=== PATIENT | male | born 1950 | race Two or more races ===

== ENCOUNTER 2017-07-02 17:05 | Inpatient (IN) | payer MEDICARE, SELFPAY ==
[~2017-07-02] VITALS: Ht 167.6 cm; Wt 54.4 kg
[~2017-07-02 17:05] MED LIST: CLAR500 PO; METR500 PO; OMEP20ER PO
[2017-07-02 21:46] LABS: BASOPHILS ABSOLUTE AUTO 0.06 K/mm3 (0.00-0.23); BASOPHILS PERCENT AUTO 0 % (0-2); EOSINOPHILS ABSOLUTE AUTO 0.01 K/mm3 (0.00-0.68); EOSINOPHILS PERCENT AUTO 0 % (0-6); Hematocrit 42.5 % (37.0-53.0); Hemoglobin 14.6 g/dL (13.5-17.5); IMMATURE GRAN PERCENT AUTO 1 % (0-1); LYMPHOCYTES ABSOLUTE AUTO 2.44 K/mm3 (0.84-5.20); LYMPHOCYTES PERCENT AUTO 11 % (21-46); MONOCYTES ABSOLUTE AUTO 1.82 K/mm3 (0.16-1.47); MONOCYTES PERCENT AUTO 8 % (4-13); Mean Corpuscular HGB Conc 34.4 g/dL (31.5-36.5); Mean Corpuscular Volume 85 fL (80-100); Mean Platelet Volume 10.5 fL (9.1-12.4); NEUTROPHILS ABSOLUTE AUTO 17.58 K/mm3 (1.96-9.15); NEUTROPHILS PERCENT AUTO 80 % (41-73); Platelet Count 330 K/mm3 (150-400); RDW Coefficient Variation 13.4 % (11.7-14.2); RDW Standard Deviation 41.5 fL (35.1-46.3); Red Blood Cell Count 5.03 M/mm3 (4.30-5.90); White Blood Cell Count 22.01 K/mm3 (4.00-11.30)
[2017-07-02 22:09] LABS: Alanine Aminotransfer (ALT/SGP 22 U/L (12-78); Albumin, Blood 3.2 g/dL (3.4-5.0); Albumin/Globulin Ratio 0.7 (0.8-1.8); Alk Phos 106 U/L (50-136); Anion Gap 9 mmol/L (6-16); Aspartate Aminotrans (AST/SGOT 14 U/L (12-37); Bilirubin, Total 0.6 mg/dL (0.1-1.0); Blood Urea Nitrogen 14 mg/dL (8-24); CO2, Blood 23 mmol/L (21-32); Calcium, Blood 8.8 mg/dL (8.5-10.1); Chloride, Blood 100 mmol/L (98-108); Creatinine, Blood 0.78 mg/dL (0.60-1.20); Globulin, Blood 4.8 g/dL (2.2-4.0); Glomerular Filtration Rate >60 (60-); Glucose, Blood 143 mg/dL (70-99); Potassium, Blood 3.9 mmol/L (3.5-5.5); Sodium, Blood 132 mmol/L (136-145)
[2017-07-03 05:01] LABS: BASOPHILS ABSOLUTE AUTO 0.04 K/mm3 (0.00-0.23); BASOPHILS PERCENT AUTO 0 % (0-2); EOSINOPHILS ABSOLUTE AUTO 0.01 K/mm3 (0.00-0.68); EOSINOPHILS PERCENT AUTO 0 % (0-6); Hematocrit 38.2 % (37.0-53.0); Hemoglobin 13.1 g/dL (13.5-17.5); IMMATURE GRAN ABSOLUTE AUTO 0.17 K/mm3 (0.00-0.10); IMMATURE GRAN PERCENT AUTO 1 % (0-1); LYMPHOCYTES ABSOLUTE AUTO 1.22 K/mm3 (0.84-5.20); LYMPHOCYTES PERCENT AUTO 6 % (21-46); MONOCYTES PERCENT AUTO 8 % (4-13); Mean Corpuscular HGB 29.2 pg (26.0-34.0); Mean Corpuscular HGB Conc 34.3 g/dL (31.5-36.5); Mean Corpuscular Volume 85 fL (80-100); Mean Platelet Volume 10.1 fL (9.1-12.4); NEUTROPHILS ABSOLUTE AUTO 16.93 K/mm3 (1.96-9.15); NEUTROPHILS PERCENT AUTO 85 % (41-73); Platelet Count 289 K/mm3 (150-400); RDW Coefficient Variation 13.6 % (11.7-14.2); RDW Standard Deviation 42.5 fL (35.1-46.3); Red Blood Cell Count 4.49 M/mm3 (4.30-5.90); White Blood Cell Count 19.87 K/mm3 (4.00-11.30)
[2017-07-03 05:41] LABS: Albumin, Blood 2.6 g/dL (3.4-5.0); Anion Gap 8 mmol/L (6-16); Blood Urea Nitrogen 12 mg/dL (8-24); Bun/Creatinine Ratio 18.1 (12.0-20.0); CO2, Blood 24 mmol/L (21-32); Chloride, Blood 103 mmol/L (98-108); Creatinine, Blood 0.66 mg/dL (0.60-1.20); Glomerular Filtration Rate >60 (60-); Glucose, Blood 214 mg/dL (70-99); Potassium, Blood 3.9 mmol/L (3.5-5.5); Sodium, Blood 135 mmol/L (136-145)
[2017-07-04 04:22] LABS: BASOPHILS ABSOLUTE AUTO 0.04 K/mm3 (0.00-0.23); BASOPHILS PERCENT AUTO 0 % (0-2); EOSINOPHILS ABSOLUTE AUTO 0.33 K/mm3 (0.00-0.68); EOSINOPHILS PERCENT AUTO 2 % (0-6); Hematocrit 36.8 % (37.0-53.0); Hemoglobin 12.4 g/dL (13.5-17.5); IMMATURE GRAN PERCENT AUTO 1 % (0-1); LYMPHOCYTES ABSOLUTE AUTO 1.52 K/mm3 (0.84-5.20); LYMPHOCYTES PERCENT AUTO 11 % (21-46); MONOCYTES ABSOLUTE AUTO 1.29 K/mm3 (0.16-1.47); MONOCYTES PERCENT AUTO 9 % (4-13); Mean Corpuscular HGB Conc 33.7 g/dL (31.5-36.5); Mean Corpuscular Volume 86 fL (80-100); NEUTROPHILS PERCENT AUTO 77 % (41-73); Platelet Count 298 K/mm3 (150-400); RDW Coefficient Variation 13.8 % (11.7-14.2); RDW Standard Deviation 43.3 fL (35.1-46.3); Red Blood Cell Count 4.28 M/mm3 (4.30-5.90); White Blood Cell Count 14.28 K/mm3 (4.00-11.30)
[2017-07-04 04:37] LABS: Anion Gap 9 mmol/L (6-16); Blood Urea Nitrogen 9 mg/dL (8-24); Bun/Creatinine Ratio 14.1 (12.0-20.0); CO2, Blood 25 mmol/L (21-32); Chloride, Blood 108 mmol/L (98-108); Creatinine, Blood 0.64 mg/dL (0.60-1.20); Glomerular Filtration Rate >60 (60-); Glucose, Blood 99 mg/dL (70-99); Potassium, Blood 3.8 mmol/L (3.5-5.5); Sodium, Blood 142 mmol/L (136-145)
[2017-07-04 14:19] LABS: Vancomycin, Trough 4.4 ug/mL (5.0-10.0)
[2017-07-05 09:15] LABS: BASOPHILS ABSOLUTE AUTO 0.05 K/mm3 (0.00-0.23); BASOPHILS PERCENT AUTO 0 % (0-2); EOSINOPHILS ABSOLUTE AUTO 0.29 K/mm3 (0.00-0.68); EOSINOPHILS PERCENT AUTO 2 % (0-6); Hematocrit 40.1 % (37.0-53.0); Hemoglobin 13.5 g/dL (13.5-17.5); IMMATURE GRAN ABSOLUTE AUTO 0.06 K/mm3 (0.00-0.10); IMMATURE GRAN PERCENT AUTO 1 % (0-1); LYMPHOCYTES ABSOLUTE AUTO 2.85 K/mm3 (0.84-5.20); LYMPHOCYTES PERCENT AUTO 22 % (21-46); MONOCYTES ABSOLUTE AUTO 1.19 K/mm3 (0.16-1.47); MONOCYTES PERCENT AUTO 9 % (4-13); Mean Corpuscular HGB Conc 33.7 g/dL (31.5-36.5); Mean Corpuscular Volume 86 fL (80-100); Mean Platelet Volume 11.1 fL (9.1-12.4); NEUTROPHILS ABSOLUTE AUTO 8.73 K/mm3 (1.96-9.15); NEUTROPHILS PERCENT AUTO 66 % (41-73); Platelet Count 342 K/mm3 (150-400); RDW Coefficient Variation 13.6 % (11.7-14.2); RDW Standard Deviation 42.8 fL (35.1-46.3); Red Blood Cell Count 4.66 M/mm3 (4.30-5.90); White Blood Cell Count 13.17 K/mm3 (4.00-11.30)
[2017-07-05 15:43] LABS: Vancomycin, Trough 16.7 ug/mL (5.0-10.0)
[2017-07-06 05:45] LABS: BASOPHILS ABSOLUTE AUTO 0.05 K/mm3 (0.00-0.23); BASOPHILS PERCENT AUTO 0 % (0-2); EOSINOPHILS ABSOLUTE AUTO 0.18 K/mm3 (0.00-0.68); EOSINOPHILS PERCENT AUTO 1 % (0-6); Hematocrit 42.3 % (37.0-53.0); Hemoglobin 14.3 g/dL (13.5-17.5); IMMATURE GRAN ABSOLUTE AUTO 0.12 K/mm3 (0.00-0.10); IMMATURE GRAN PERCENT AUTO 1 % (0-1); LYMPHOCYTES ABSOLUTE AUTO 2.62 K/mm3 (0.84-5.20); LYMPHOCYTES PERCENT AUTO 20 % (21-46); MONOCYTES ABSOLUTE AUTO 0.98 K/mm3 (0.16-1.47); MONOCYTES PERCENT AUTO 7 % (4-13); Mean Corpuscular HGB 29.2 pg (26.0-34.0); Mean Corpuscular HGB Conc 33.8 g/dL (31.5-36.5); Mean Corpuscular Volume 86 fL (80-100); Mean Platelet Volume 10.1 fL (9.1-12.4); NEUTROPHILS ABSOLUTE AUTO 9.32 K/mm3 (1.96-9.15); NEUTROPHILS PERCENT AUTO 70 % (41-73); Platelet Count 397 K/mm3 (150-400); RDW Coefficient Variation 13.6 % (11.7-14.2); RDW Standard Deviation 42.4 fL (35.1-46.3); White Blood Cell Count 13.27 K/mm3 (4.00-11.30)
[2017-07-06 06:04] LABS: Anion Gap 8 mmol/L (6-16); Blood Urea Nitrogen 5 mg/dL (8-24); Bun/Creatinine Ratio 7.7 (12.0-20.0); CO2, Blood 26 mmol/L (21-32); Chloride, Blood 106 mmol/L (98-108); Creatinine, Blood 0.65 mg/dL (0.60-1.20); Glomerular Filtration Rate >60 (60-); Glucose, Blood 107 mg/dL (70-99); Potassium, Blood 4.3 mmol/L (3.5-5.5); Sodium, Blood 140 mmol/L (136-145)
[2017-07-07 17:02] LABS: Vancomycin, Trough 14.6 ug/mL (5.0-10.0)
[2017-07-08] MEDS ORDERED: Cleocin HCl300 MG PO ×2 (11:19)
[2017-07-08] MEDS ORDERED: ACET325 PO ×2 (11:19)
[2017-07-08] MEDS ORDERED: Acidophilus La1 EACH PO ×2 (11:20)
== END 2017-07-08 18:28 | disposition home or self-care (01) | DRG 872 ==
LOC: ER 17:05 → MEDS 07-03 01:05 → ENPENDDIS 07-08 11:00 → MEDS 07-08 18:28
PROVIDERS: Family Medicine; Internal Medicine; Pharmacist; Physician Assistant
PROC: 0J973ZX Drainage of Back Subcutaneous Tissue and Fascia, Percutaneous Approach, Diagnostic (ICD-10-PCS; principal; 2017-07-03)
DX: A41.02 Sepsis due to Methicillin resistant Staphylococcus aureus (principal); E87.1 Hypo-osmolality and hyponatremia; L02.212 Cutaneous abscess of back [any part, except buttock and flank]; L03.312 Cellulitis of back [any part except buttock and flank]; R05 Cough; F17.210 Nicotine dependence, cigarettes, uncomplicated; R73.9 Hyperglycemia, unspecified; Z88.0 Allergy status to penicillin
CPT/HCPCS: 10061; 36415; 80048; 80053; 80069; 80202; 82550; 82947; 83036; 83605; 85025; 87040; 87070; 87075; 87077; 87147; 87186; 87205; 93306; 96365; 99285; C1751; J0690; J0878; J3370; J7030

== ENCOUNTER 2017-07-09 09:32 | Day surgery (SDC) | payer MEDICARE, SELFPAY ==
[~2017-07-09 09:32] MED LIST changes: +ACET325 PO; +Acidophilus La1 EACH PO; +Cleocin HCl300 MG PO
== END 2017-07-09 16:27 | disposition home or self-care (01) ==
LOC: ATC 09:32
DX: A49.02 Methicillin resistant Staphylococcus aureus infection, unspecified site (principal); R78.81 Bacteremia
CPT/HCPCS: 96365; J0878

== ENCOUNTER 2017-07-10 00:15 | Day surgery (SDC) | payer MEDICARE, SELFPAY | END 2017-07-10 08:38 | disposition home or self-care (01) | LOC: ATC 00:15 | DX: A41.02 Sepsis due to Methicillin resistant Staphylococcus aureus (principal); L02.212 Cutaneous abscess of back [any part, except buttock and flank]; L03.312 Cellulitis of back [any part except buttock and flank]; Z72.0 Tobacco use | CPT/HCPCS: 96374; 99211; J0878 ==

== ENCOUNTER 2017-07-11 00:37 | Day surgery (SDC) | payer MEDICARE, SELFPAY | END 2017-07-11 09:00 | disposition home or self-care (01) | LOC: ATC 00:37 | DX: A41.02 Sepsis due to Methicillin resistant Staphylococcus aureus (principal); L03.312 Cellulitis of back [any part except buttock and flank] | CPT/HCPCS: 96374; J0878 ==

== ENCOUNTER 2017-07-12 01:12 | Day surgery (SDC) | payer MEDICARE, SELFPAY ==
[2017-07-12 08:38] LABS: BASOPHILS ABSOLUTE AUTO 0.06 K/mm3 (0.00-0.23); BASOPHILS PERCENT AUTO 1 % (0-2); EOSINOPHILS ABSOLUTE AUTO 0.23 K/mm3 (0.00-0.68); EOSINOPHILS PERCENT AUTO 2 % (0-6); Hematocrit 41.6 % (37.0-53.0); Hemoglobin 13.6 g/dL (13.5-17.5); IMMATURE GRAN ABSOLUTE AUTO 0.07 K/mm3 (0.00-0.10); IMMATURE GRAN PERCENT AUTO 1 % (0-1); LYMPHOCYTES ABSOLUTE AUTO 3.15 K/mm3 (0.84-5.20); LYMPHOCYTES PERCENT AUTO 31 % (21-46); MONOCYTES ABSOLUTE AUTO 0.73 K/mm3 (0.16-1.47); MONOCYTES PERCENT AUTO 7 % (4-13); Mean Corpuscular HGB 28.9 pg (26.0-34.0); Mean Corpuscular HGB Conc 32.7 g/dL (31.5-36.5); Mean Corpuscular Volume 88 fL (80-100); NEUTROPHILS ABSOLUTE AUTO 5.96 K/mm3 (1.96-9.15); NEUTROPHILS PERCENT AUTO 58 % (41-73); RDW Coefficient Variation 14.2 % (11.7-14.2); RDW Standard Deviation 45.5 fL (35.1-46.3); Red Blood Cell Count 4.71 M/mm3 (4.30-5.90)
[2017-07-12 08:45] LABS: Mean Platelet Volume 11.2 fL (9.1-12.4); Platelet Count 193 K/mm3 (150-400)
[2017-07-12 08:58] LABS: Alanine Aminotransfer (ALT/SGP 21 U/L (12-78); Albumin, Blood 3.3 g/dL (3.4-5.0); Albumin/Globulin Ratio 0.8 (0.8-1.8); Alk Phos 77 U/L (50-136); Anion Gap 6 mmol/L (6-16); Aspartate Aminotrans (AST/SGOT 13 U/L (12-37); Bilirubin, Total 0.2 mg/dL (0.1-1.0); Blood Urea Nitrogen 12 mg/dL (8-24); Bun/Creatinine Ratio 18.5 (12.0-20.0); CO2, Blood 25 mmol/L (21-32); CPK Creatine Kinase 64 U/L (39-308); Calcium, Blood 8.7 mg/dL (8.5-10.1); Chloride, Blood 106 mmol/L (98-108); Creatinine, Blood 0.65 mg/dL (0.60-1.20); Globulin, Blood 3.9 g/dL (2.2-4.0); Glomerular Filtration Rate >60 (60-); Glucose, Blood 127 mg/dL (70-99); Potassium, Blood 3.7 mmol/L (3.5-5.5); Sodium, Blood 137 mmol/L (136-145); Total Protein, Blood 7.2 g/dL (6.4-8.2)
== END 2017-07-12 08:26 | disposition home or self-care (01) ==
LOC: ATC 01:12
PROVIDERS: Internal Medicine Infectious Disease
DX: A41.02 Sepsis due to Methicillin resistant Staphylococcus aureus (principal); L02.413 Cutaneous abscess of right upper limb; Z72.0 Tobacco use
CPT/HCPCS: 80053; 82550; 85025; 96374; J0878

== ENCOUNTER 2017-07-13 01:10 | Day surgery (SDC) | payer MEDICARE, SELFPAY | END 2017-07-13 09:05 | disposition home or self-care (01) | LOC: ATC 01:10 | DX: A41.02 Sepsis due to Methicillin resistant Staphylococcus aureus (principal); L03.312 Cellulitis of back [any part except buttock and flank]; L02.212 Cutaneous abscess of back [any part, except buttock and flank]; Z72.0 Tobacco use | CPT/HCPCS: 96374 ==

== ENCOUNTER 2017-07-14 01:38 | Day surgery (SDC) | payer MEDICARE, SELFPAY | END 2017-07-14 08:49 | disposition home or self-care (01) | LOC: ATC 01:38 | DX: A41.02 Sepsis due to Methicillin resistant Staphylococcus aureus (principal); L02.413 Cutaneous abscess of right upper limb; L03.113 Cellulitis of right upper limb; Z72.0 Tobacco use | CPT/HCPCS: 96374; J0878 ==

== ENCOUNTER 2017-07-15 01:16 | Day surgery (SDC) | payer MEDICARE, SELFPAY ==
[2017-07-16] MEDS ORDERED: DAPTOMYCIN500 MG IV (08:24)
== END 2017-07-15 08:28 | disposition home or self-care (01) ==
LOC: ATC 01:16
DX: A41.02 Sepsis due to Methicillin resistant Staphylococcus aureus (principal); L03.113 Cellulitis of right upper limb; L02.413 Cutaneous abscess of right upper limb; Z72.0 Tobacco use
CPT/HCPCS: 96374; J0878

== ENCOUNTER 2017-07-16 00:15 | Day surgery (SDC) | payer MEDICARE, SELFPAY ==
[2017-07-16] MEDS ORDERED: DAPTOMYCIN500 MG IV (08:24)
== END 2017-07-16 08:25 | disposition home or self-care (01) ==
LOC: ATC 00:15
DX: A41.02 Sepsis due to Methicillin resistant Staphylococcus aureus (principal); L03.113 Cellulitis of right upper limb; L02.413 Cutaneous abscess of right upper limb; Z72.0 Tobacco use
CPT/HCPCS: 96374; J0878

== ENCOUNTER 2017-07-16 11:37 | Day surgery (SDC) | payer MEDICARE, SELFPAY ==
[~2017-07-16 11:37] MED LIST changes: +DAPTOMYCIN500 MG IV
== END 2017-07-16 15:52 | disposition home or self-care (01) ==
LOC: WOUND 11:37
PROC: 0HBBXZZ Excision of Right Upper Arm Skin, External Approach (ICD-10-PCS; principal; 2017-07-16)
DX: M71.012 Abscess of bursa, left shoulder (principal); L02.212 Cutaneous abscess of back [any part, except buttock and flank]; B95.62 Methicillin resistant Staphylococcus aureus infection as the cause of diseases classified elsewhere; F17.210 Nicotine dependence, cigarettes, uncomplicated
CPT/HCPCS: 99406; G0463

== ENCOUNTER 2017-07-17 00:47 | Day surgery (SDC) | payer MEDICARE, SELFPAY | END 2017-07-17 08:10 | disposition home or self-care (01) | LOC: ATC 00:47 | DX: A41.02 Sepsis due to Methicillin resistant Staphylococcus aureus (principal); L03.113 Cellulitis of right upper limb; L02.413 Cutaneous abscess of right upper limb; F17.210 Nicotine dependence, cigarettes, uncomplicated | CPT/HCPCS: 96374; J0878 ==

== ENCOUNTER 2017-07-18 00:50 | Day surgery (SDC) | payer MEDICARE, SELFPAY | END 2017-07-18 08:45 | disposition home or self-care (01) | LOC: ATC 00:50 | DX: A41.02 Sepsis due to Methicillin resistant Staphylococcus aureus (principal); L03.113 Cellulitis of right upper limb; F17.210 Nicotine dependence, cigarettes, uncomplicated | CPT/HCPCS: 96374; J0878 ==

== ENCOUNTER 2017-07-19 00:44 | Day surgery (SDC) | payer MEDICARE, SELFPAY ==
[2017-07-19 08:29] LABS: BASOPHILS ABSOLUTE AUTO 0.06 K/mm3 (0.00-0.23); BASOPHILS PERCENT AUTO 1 % (0-2); EOSINOPHILS ABSOLUTE AUTO 0.11 K/mm3 (0.00-0.68); EOSINOPHILS PERCENT AUTO 1 % (0-6); Hematocrit 47.1 % (37.0-53.0); Hemoglobin 15.6 g/dL (13.5-17.5); IMMATURE GRAN ABSOLUTE AUTO 0.02 K/mm3 (0.00-0.10); IMMATURE GRAN PERCENT AUTO 0 % (0-1); LYMPHOCYTES ABSOLUTE AUTO 2.49 K/mm3 (0.84-5.20); LYMPHOCYTES PERCENT AUTO 30 % (21-46); MONOCYTES ABSOLUTE AUTO 0.64 K/mm3 (0.16-1.47); MONOCYTES PERCENT AUTO 8 % (4-13); Mean Corpuscular HGB 28.7 pg (26.0-34.0); Mean Corpuscular HGB Conc 33.1 g/dL (31.5-36.5); Mean Corpuscular Volume 87 fL (80-100); NEUTROPHILS ABSOLUTE AUTO 5.04 K/mm3 (1.96-9.15); NEUTROPHILS PERCENT AUTO 60 % (41-73); Platelet Count 252 K/mm3 (150-400); RDW Coefficient Variation 14.6 % (11.7-14.2); RDW Standard Deviation 46.5 fL (35.1-46.3); Red Blood Cell Count 5.43 M/mm3 (4.30-5.90); White Blood Cell Count 8.36 K/mm3 (4.00-11.30)
[2017-07-19 09:02] LABS: Alanine Aminotransfer (ALT/SGP 25 U/L (12-78); Alk Phos 69 U/L (50-136); Anion Gap 9 mmol/L (6-16); Aspartate Aminotrans (AST/SGOT 20 U/L (12-37); Bilirubin, Total 0.3 mg/dL (0.1-1.0); Blood Urea Nitrogen 12 mg/dL (8-24); Bun/Creatinine Ratio 18.5 (12.0-20.0); CO2, Blood 24 mmol/L (21-32); CPK Creatine Kinase 67 U/L (39-308); Calcium, Blood 9.3 mg/dL (8.5-10.1); Chloride, Blood 108 mmol/L (98-108); Creatinine, Blood 0.65 mg/dL (0.60-1.20); Glomerular Filtration Rate >60 (60-); Glucose, Blood 104 mg/dL (70-99); Potassium, Blood 3.9 mmol/L (3.5-5.5); Sodium, Blood 141 mmol/L (136-145)
== END 2017-07-19 08:30 | disposition home or self-care (01) ==
LOC: ATC 00:44
PROVIDERS: Internal Medicine Infectious Disease
DX: A41.02 Sepsis due to Methicillin resistant Staphylococcus aureus (principal); L02.413 Cutaneous abscess of right upper limb; F17.210 Nicotine dependence, cigarettes, uncomplicated
CPT/HCPCS: 80053; 82550; 85025; 96374; J0878

== ENCOUNTER 2017-07-20 00:02 | Day surgery (SDC) | payer MEDICARE, SELFPAY | END 2017-07-20 08:32 | disposition home or self-care (01) | LOC: ATC 00:02 | DX: A41.02 Sepsis due to Methicillin resistant Staphylococcus aureus (principal); L02.413 Cutaneous abscess of right upper limb; F17.210 Nicotine dependence, cigarettes, uncomplicated | CPT/HCPCS: 96374; J0878 ==

== ENCOUNTER 2017-07-21 00:02 | Day surgery (SDC) | payer MEDICARE, SELFPAY | END 2017-07-21 08:20 | disposition home or self-care (01) | LOC: ATC 00:02 | DX: A41.02 Sepsis due to Methicillin resistant Staphylococcus aureus (principal); L02.413 Cutaneous abscess of right upper limb; F17.210 Nicotine dependence, cigarettes, uncomplicated | CPT/HCPCS: 96365; 99211; J0878 ==

== ENCOUNTER 2017-07-22 00:29 | Day surgery (SDC) | payer MEDICARE, SELFPAY | END 2017-07-22 08:27 | disposition home or self-care (01) | LOC: ATC 00:29 | DX: A41.02 Sepsis due to Methicillin resistant Staphylococcus aureus (principal); L02.413 Cutaneous abscess of right upper limb; F17.210 Nicotine dependence, cigarettes, uncomplicated | CPT/HCPCS: 96374; J0878 ==

== ENCOUNTER 2017-07-23 09:09 | Day surgery (SDC) | payer MEDICARE, SELFPAY | END 2017-07-23 22:41 | disposition home or self-care (01) | LOC: WOUND 09:09 | DX: Z48.00 Encounter for change or removal of nonsurgical wound dressing (principal); M71.012 Abscess of bursa, left shoulder; B95.62 Methicillin resistant Staphylococcus aureus infection as the cause of diseases classified elsewhere | CPT/HCPCS: G0463 ==

== ENCOUNTER 2017-07-30 10:13 | Day surgery (SDC) | payer MEDICARE, SELFPAY | END 2017-07-30 12:23 | disposition home or self-care (01) | LOC: WOUND 10:13 | DX: Z48.00 Encounter for change or removal of nonsurgical wound dressing (principal); L02.212 Cutaneous abscess of back [any part, except buttock and flank]; B95.62 Methicillin resistant Staphylococcus aureus infection as the cause of diseases classified elsewhere; F17.200 Nicotine dependence, unspecified, uncomplicated | CPT/HCPCS: 36415; 87040; 93308; 93321; G0463 ==

== ENCOUNTER 2017-08-06 10:05 | Day surgery (SDC) | payer MEDICARE, SELFPAY | END 2017-08-06 10:46 | disposition home or self-care (01) | LOC: WOUND 10:05 | DX: Z48.00 Encounter for change or removal of nonsurgical wound dressing (principal); L02.212 Cutaneous abscess of back [any part, except buttock and flank]; B95.61 Methicillin susceptible Staphylococcus aureus infection as the cause of diseases classified elsewhere | CPT/HCPCS: G0463 ==

== ENCOUNTER 2017-08-13 10:13 | Day surgery (SDC) | payer MEDICARE, SELFPAY | END 2017-08-13 10:50 | disposition home or self-care (01) | LOC: WOUND 10:13 | DX: Z48.00 Encounter for change or removal of nonsurgical wound dressing (principal); L02.212 Cutaneous abscess of back [any part, except buttock and flank]; A49.02 Methicillin resistant Staphylococcus aureus infection, unspecified site; F17.210 Nicotine dependence, cigarettes, uncomplicated | CPT/HCPCS: G0463 ==

== ENCOUNTER 2017-08-27 10:30 | Day surgery (SDC) | payer MEDICARE, SELFPAY | END 2017-08-27 22:57 | disposition home or self-care (01) | LOC: WOUND 10:30 | DX: Z48.00 Encounter for change or removal of nonsurgical wound dressing (principal); L02.212 Cutaneous abscess of back [any part, except buttock and flank]; Z22.322 Carrier or suspected carrier of Methicillin resistant Staphylococcus aureus; F17.210 Nicotine dependence, cigarettes, uncomplicated | CPT/HCPCS: 99406; G0463 ==

== ENCOUNTER 2017-09-10 10:11 | Day surgery (SDC) | payer MEDICARE, SELFPAY | END 2017-09-10 22:49 | disposition home or self-care (01) | LOC: WOUND 10:11 | DX: Z48.00 Encounter for change or removal of nonsurgical wound dressing (principal); L02.212 Cutaneous abscess of back [any part, except buttock and flank]; B95.61 Methicillin susceptible Staphylococcus aureus infection as the cause of diseases classified elsewhere | CPT/HCPCS: G0463 ==